=== PATIENT | male | born 1965 | race Caucasian/White ===

== ENCOUNTER 2016-04-19 09:19 | Emergency (ER) | payer BC | END 2016-04-19 10:49 | disposition home or self-care (01) | LOC: ER1 09:19 | DX: S61.211A Laceration without foreign body of left index finger without damage to nail, initial encounter (principal); W26.8XXA Contact with other sharp object(s), not elsewhere classified, initial encounter | CPT/HCPCS: 12001; 99283 ==

== ENCOUNTER → 2020-03-08 | Outpatient (CLI) | payer BC | LOC: RAD 12:24 | DX: M54.6 Pain in thoracic spine (principal); M25.562 Pain in left knee; M47.814 Spondylosis without myelopathy or radiculopathy, thoracic region; M25.78 Osteophyte, vertebrae | CPT/HCPCS: 72072; 73564 ==

== ENCOUNTER → 2020-05-10 | Outpatient (CLI) | payer BC | LOC: RAD 09:07 | DX: M54.2 Cervicalgia (principal); R20.2 Paresthesia of skin | CPT/HCPCS: 72050 ==

== ENCOUNTER → 2020-06-21 | Outpatient (CLI) | payer BC | LOC: KOH-I 13:34 | DX: R20.2 Paresthesia of skin (principal); M54.9 Dorsalgia, unspecified; M50.322 Other cervical disc degeneration at C5-C6 level; M47.814 Spondylosis without myelopathy or radiculopathy, thoracic region | CPT/HCPCS: 72141; 72146 ==